=== PATIENT | male | born 1965 | race African-American/Black ===

== ENCOUNTER 2018-07-21 10:00 | Emergency (ER) | payer MEDICARE, OTHER ==
[~2018-07-21] VITALS: Ht 175.3 cm; Wt 81.6 kg
[2018-07-21 10:10] VITALS: BP 129/91
[2018-07-21] MEDS ORDERED: TAMSULOSIN HCL0.4 MG ORAL (10:13)
[2018-07-21] MEDS ORDERED: REBIF44 MCG/0.5 SUBQ (10:13)
[2018-07-21] MEDS ORDERED: Bacitracin Oint UD TOPIC ONE (10:15)
--- NOTE | 2018-07-21 10:25 | Emergency Room Report ---
History of Present Illness General Chief Complaint: Multiple Trauma/Fall Source: Patient Present Illness HPI While being wheeled up ramp, patient tipped out of w/c. C/o lac right forehead. No headache, no other injury or complaint. No neck pain. No LOC, no vomitnig. Allergies: Coded Allergies: No Known Allergies (Unverified , 07/21/18) Nursing Documentation-[facility] Past Medical History: No History, Except For Review of Systems Constitutional: Denies: fever Eye: Denies: acuity changes Respiratory: Denies: cough, shortness of breath Cardiovascular: Denies: chest pain Gastrointestinal: Denies: nausea, vomiting Skin: Denies: rash Neurological: Denies: headache All Other Systems: negative except mentioned in HPI Physical Exam Vital Signs Date Time Temp Pulse Resp B/P (MAP) Pulse Ox O2 Delivery O2 Flow Rate FiO2 07/21/18 10:07 98.6 105 18 129/91 99 Room Air 98.6 Sp02 EP Interpretation: normal General Appearance: well appearing, no apparent distress Head: normocephalic, other - small ~one cm shallow lac over lateral right eyebrow ENT: hearing grossly normal, normal voice Neck: full range of motion, supple Respiratory: no respiratory distress, speaking full sentences Musculoskeletal: other - w/c but no acute neuro Neurologic: alert, other - w/c, paresis, oriented Psychiatric: judgement/insight normal, memory normal, mood/affect normal Skin: no rash Procedures Laceration/Wound Repair Laceration/Wound Repair : Consent: Emergent Wound Location: face Wound's Depth, Shape: superficial Wound Explored: clean Betadine Prep?: No Wound Repaired With: Dermabond Layer Closure?: No Sterile Dressing Applied?: No Splint Applied?: No Patient Tolerated: Well Complications: None Medical Decision Making Diagnostic Impression: Primary Impression: Laceration of face Last Vital Signs Date Time Temp Pulse Resp B/P (MAP) Pulse Ox O2 Delivery O2 Flow Rate FiO2 07/21/18 10:10 98.6 105 18 129/91 99 Room Air 98.6 Disposition: HOME, SELF-CARE Condition: Stable Patient Instructions: Laceration Care, Adult, [id number] Emeka Teixeira M.D. Jul 21, 2018 10:25
[2018-07-21 10:50] VITALS: BP 129/91
== END 2018-07-21 10:53 | disposition home or self-care (01) ==
LOC: EMR 10:15
DX: S01.81XA Laceration without foreign body of other part of head, initial encounter (principal); W01.198A Fall on same level from slipping, tripping and stumbling with subsequent striking against other object, initial encounter; Y92.89 Other specified places as the place of occurrence of the external cause
CPT/HCPCS: 99282